=== PATIENT | male | born 1950 | race Caucasian/White ===

== ENCOUNTER → 2019-04-17 | Outpatient (CLI) | payer MEDICARE, OTHER ==
[~2019-04-17] MED LIST: ANTIVERT 25MG25 MG PO; LIPITOR20 MG PO; PRILOSEC 20MG20 MG PO; ZOFRAN 8MG8 MG PO
== END ==
LOC: COL.RAD 08:49
DX: M19.032 Primary osteoarthritis, left wrist (principal)
CPT/HCPCS: J3301; Q9967

== ENCOUNTER → 2021-09-21 | Outpatient (CLI) | payer MEDICARE | LOC: COL.RAD 10:00 | DX: I71.4 Abdominal aortic aneurysm, without rupture (principal); F17.201 Nicotine dependence, unspecified, in remission ==

== ENCOUNTER 2022-07-17 18:46 | Emergency (ER) | payer MEDICARE, OTHER ==
[~2022-07-17] VITALS: Ht 188 cm; Wt 100.0 kg
[2022-07-17 18:55] VITALS: TEMP 97.6
[2022-07-17 21:19] VITALS: BP 132/90; PULSE 48
== END 2022-07-17 21:19 | disposition home or self-care (01) ==
LOC: COL.ER 18:46
DX: S01.01XA Laceration without foreign body of scalp, initial encounter (principal); W22.8XXA Striking against or struck by other objects, initial encounter